=== PATIENT | female | born 1980 | race Two or more races ===

== ENCOUNTER 2018-08-08 13:54 | Emergency (ER) | payer SELFPAY ==
[~2018-08-08] VITALS: Ht 172.7 cm; Wt 67.6 kg
[2018-08-08] MEDS ORDERED: OXYcodone/APAP 5/325MG TABLET ONE (14:35)
[2018-08-08] MEDS ORDERED: OXYcodone/APAP 5/325MG TABLET PO ONE (15:00)
[2018-08-08 15:50] VITALS: BP 132/84
== END 2018-08-08 16:46 | disposition home or self-care (01) ==
LOC: ED 14:00
DX: S16.1XXA Strain of muscle, fascia and tendon at neck level, initial encounter (principal); S80.01XA Contusion of right knee, initial encounter; S70.01XA Contusion of right hip, initial encounter; V49.49XA Driver injured in collision with other motor vehicles in traffic accident, initial encounter; Y93.89 Activity, other specified; Y92.89 Other specified places as the place of occurrence of the external cause; Y99.8 Other external cause status
CPT/HCPCS: 72050; 99283